=== PATIENT | male | born 1985 | race Caucasian/White ===

== ENCOUNTER 2023-10-13 21:20 | Emergency (ER) | payer MEDICAID ==
[~2023-10-13] VITALS: Ht 190.5 cm; Wt 99.8 kg
[2023-10-13 21:25] VITALS: BP 146/91; PULSE 89; RESP 20; TEMP 98.3; O2SAT 99
[2023-10-13 22:17] LABS: APPEARANCE,URINE CLEAR (CLEAR); BILIRUBIN,URINE NEGATIVE (NEGATIVE); BLOOD, URINE 3+ (NEGATIVE); COLOR,URINE YELLOW (YELLOW); LEUKOCYTE ESTERASE ,URINE NEGATIVE (NEGATIVE); NITRITE, URINE NEGATIVE (NEGATIVE); PROTEIN,URINE NEGATIVE (NEGATIVE); UGLUCOSE NEGATIVE (NEGATIVE); UROBILINOGEN,URINE 0.2 EU/dL (0.2 - 1)
[2023-10-13 22:20] LABS: BACTERIA,URINE 10-30 (MOD) /HPF (None Seen); MUCUS,URINE 1+ /LPF (None Seen); RBC,URINE 11-20 (MOD) /HPF (0-5); SQUAMOUS EPITHELIAL CELL,UR 0-3 (FEW) /LPF (0-3 (FEW)); WBC,URINE 0-5 /HPF (0-5)
[2023-10-14 01:29] VITALS: BP 136/69; PULSE 68; RESP 14
[2023-10-14 01:30] VITALS: O2SAT 97
[2023-10-14] MEDS ORDERED: MORPHINE SULFATE 4 MG/ML SYR IVP ONE (01:35)
[2023-10-14] MEDS ORDERED: ONDANSETRON 4 MG/2 ML VIAL IVP ONE (01:35)
[2023-10-14 01:56] LABS: BASOPHILS # (AUTO) 0.1 K/uL (0.00-0.22); BASOPHILS % (AUTO) 0.3 % (0.0-2.0); EOSINOPHILS % (AUTO) 0.1 % (0.0-4.0); HEMATOCRIT 40.9 % (36-52); LYMPHOCYTES # (AUTO) 1.4 K/uL (2.0-11.5); LYMPHOCYTES % (AUTO) 7.9 % (20.5-51.1); MEAN CORPUSCULAR HEMOGLOBIN 31 pg (27-31); MEAN CORPUSCULAR HGB CONC 34 g/dL (33-37); MEAN CORPUSCULAR VOLUME 89.2 fL (80-94); MONOCYTES # (AUTO) 1.2 K/uL (0.8-1.0); MONOCYTES % (AUTO) 6.6 % (1.7-9.3); NEUTROPHILS # (AUTO) 15.5 K/uL (1.8-7.7); NEUTROPHILS % (AUTO) 85.1 % (42.2-75.2); PLATELET COUNT (AUTO) 247 K/uL (140-450); RED BLOOD CELL COUNT(AUTO) 4.59 MIL/uL (4.20-6.10); RED CELL DISTRIBUTION WIDTH 13.3 % (11.6-13.7); WHITE BLOOD COUNT (AUTO) 18.2 K/uL (4.8-10.8)
[2023-10-14 02:16] LABS: POTASSIUM 4.1 mmol/L (3.5-5.1)
[2023-10-14 02:17] LABS: CALCIUM 9.8 mg/dL (8.5-10.1); CARBON DIOXIDE 32.1 mmol/L (21-32); CREATININE 1.5 mg/dL (0.6-1.3)
[2023-10-14] MEDS ORDERED: KETOROLAC 30 MG/ML VIAL IVP ONE (03:55)
[2023-10-14 04:17] VITALS: O2SAT 97
[2023-10-14] MEDS ORDERED: ACET-10509 PO (05:09)
[2023-10-14] MEDS ORDERED: NAPR-54 PO (05:09)
[2023-10-14] MEDS ORDERED: CEPH-588 PO (05:09)
[2023-10-14] MEDS ORDERED: cefTRIAXone 1,000 MG VIAL ONE (05:14)
== END 2023-10-14 06:28 | disposition home or self-care (01) ==
LOC: MED 21:20
DX: N20.1 Calculus of ureter (principal); Z79.899 Other long term (current) drug therapy; Z79.2 Long term (current) use of antibiotics; Z79.1 Long term (current) use of non-steroidal anti-inflammatories (NSAID)
CPT/HCPCS: 36415; 74176; 80048; 81001; 85025; 96374; 96375; 99285; J0696; J1885; J2270; J2405